=== PATIENT | male | born 1995 | race Caucasian/White ===

== ENCOUNTER 2024-07-30 13:13 | Inpatient (IN) ==
[2024-07-30 13:54] LABS: Basophils # (auto) 0.05 K/uL (0.00-0.20); Basophils % (auto) 0.5 %; Eosinophils # (auto) 0.15 K/uL (0.00-0.50); Eosinophils % (auto) 1.6 %; Hematocrit (blood only) 43.6 % (42.0-52.0); Hemoglobin 14.1 g/dl (14.0-18.0); Immature Granulocytes # (auto) 0.04 K/uL (0.01-0.20); Immature Granulocytes % (auto) 0.4 %; Lymphocytes # (auto) 1.98 K/uL (1.20-3.40); Lymphocytes % (auto) 21.4 %; Mean Corpuscular Hemoglobin 27.4 pg (25.0-34.0); Mean Corpuscular Hgb Conc 32.3 g/dL (32.0-36.0); Mean Corpuscular Volume 84.7 fL (80.0-100.0); Mean Platelet Volume 9.7 fL (9.4-12.4); Monocytes # (auto) 0.54 K/uL (0.11-0.59); Monocytes % (auto) 5.8 %; Neutrophils # (auto) 6.48 K/uL (1.40-6.50); Neutrophils % (auto) 70.3 %; Platelet Count 299 K/uL (130-400); RDW Coefficient of Variation 13.8 % (11.5-14.5); RDW Standard Deviation 42.8 fL (36.4-46.3); Red Blood Count 5.15 M/uL (4.70-6.10); White Blood Count 9.24 K/ul (4.8-10.8)
[2024-07-30 14:18] LABS: Albumin Globulin Ratio 1.5 (0.9-2); Albumin Level 4.5 gm/dl (3.4-5.0); BUN Creatinine Ratio 18.9 (10-20); Bilirubin,Total 0.3 mg/dl (0.2-1.0); Calcium 9.3 mg/dl (8.6-10.3); Creatinine Clr Calc Pharmacy 79.9 ml/min; Potassium 4.3 mmol/L (3.5-5.1); Total Protein 7.5 gm/dl (6.0-8.3)
[2024-07-30] MEDS: SODIUM CHLORIDE 0.9% 1,000 ML IV ONE (15:54)
--- NOTE | 2024-07-30 16:11 | Emergency Department Note ---
Impression & Plan Suicide ideation, Weakness, OCD (obsessive compulsive disorder), Dehydration ED Provider Note NAME: FLORIDA RAYA AGE: 29 SEX: M : 1995 ARRIVES VIA: Walk-In INFORMANT: Patient ED PROVIDER(S): Lazarus Weinstein MD CHIEF COMPLAINT: Weakness, referred. PLAN: Disposition: MEDICAL DECISION MAKING: The patient is a 29-year-old gentleman with a past medical history of anxiety/depression, OCD, substance abuse status post admission to rehab facility for abuse of stimulants who presents to the emergency department via walk-in for evaluation of generalized fatigue and extremity weakness that he reports has been ongoing for the past several days. Patient reports he felt so weak that he could not walk but did manage to walk and drive himself to the emergency department. He reports he contacted his outpatient providers who have been managing his mental health medications and he was referred to the emergency department for assessment. He denies any fevers, chills, cough, congestion, chest pain, shortness of breath. Of note, the patient did arrive to emergency department during time of high volume, acuity and prolonged emergency department waiting times. Critical pathways initiated from triage. On my evaluation the patient is anxious appearing but calm and cooperative. He is afebrile heart in the 110s vital signs otherwise stable. He appears clinically dry. He exhibits no focal neurologic deficits. He has normal strength in all extremities. There is no clonus. He has normal reflexes. EKG without overt acute ischemia. WBC, H/H and platelets within normal limits. Chemistry without metabolic acidosis. Creatinine 1.4, slightly increased from prior values consistent with patient's clinically dry appearance. LFTs unremarkable. Electrolytes unremarkable. CPK is 288, mildly above upper limit of normal and nonspecific. TSH within limits. UA without evidence of infection. Urine drug screen was positive for MDMA which may be related to patient's bupropion and otherwise it was negative. Respiratory BioFire was negative. The patient was treated with IV fluid hydration. Given the patient's reassuring medical evaluation unlikely to have emergent process at this time. However, prior to the patient's reassessment I was alerted by his RN that the patient was insisting to leave. However, devulcanizer charger then was contacted by the patient's brother who lives in [place] but had reported he received concerning text messages from his brother stating suicidal ideation where he reported he was going to go home and overdose on his medications. Appreciate case management assistance/consultation who did receive these text messages for review and given the clear intent that was described 302 petition was created and petition for warrant in process. Patient was given 2 mg oral Ativan as he had become quite restless at this point. Upon completion of mental assessment, the patient was offered option to sign in voluntary under a 201 for inpatient psychiatric treatment. However he continued to plead to being discharged. After repeatedly attempted to explain the importance of pursuing emergent mental health treatment the patient continued to decline voluntary admission. I then met personally with the patient again to review concerns. He did attempt to explain that he had concerns regarding impact of involuntary treatment in terms of his career. He explained that if the option was for inpatient psychiatric treatment he would sign in voluntarily instead rather than under a 302. It was explained to him and his girlfriend at the bedside that this does not communicate true voluntary intent to manage his mental health. We did attempt to assess if a appropriate safety plan would even be possible and unfortunately it was not. The patient's girlfriend is to be traveling for a conference tomorrow. The patient initially reported that he had a scheduled appointment tomorrow as with his [facility] to assess medication changes but he then acknowledged that he did not in fact have a scheduled appointment but hope to obtain one by calling tomorrow. The patient's 302 will be upheld at this time. Bed search will be initiated. Home medications were ordered. The patient was signed out to Dr. Olivera at change of shift. Triage Nursing notes reviewed and agree them. Prior/external medical records reviewed Vital Signs: reviewed Differential diagnosis: Mood disorder, infection, hypoglycemia, electrolyte abnormalities, cardiac sources, intracerebral event, toxicologic, trauma, neurologic, as well as other pathologies. ER treatment provided: See below. Diagnostics interpreted by me: ECG: Normal sinus rhythm, 89 bpm, no ectopy, no overt ST elevation or depression, QTc 423, QRS 90. Cardiac Monitoring: An order for continuous cardiac monitoring was placed and demonstrated Normal sinus rhythm, 89 bpm, no ectopy. Laboratory studies: See below Imaging studies: See below Consultation(s): Case management HPI: Per MDM. ROS: See above HPI for pertinent positives & negatives. A total of 10 systems reviewed and were otherwise negative. VITALS:See Below PHYSICAL EXAMINATION: GENERAL: Awake, alert, anxious appearing but calm, in no distress HENT: Normocephalic, atraumatic. Oropharynx with dry mucous membranes and otherwise unremarkable. EYES: Normal conjunctiva. Sclera non-icteric. EOMI. No nystamgus. PEARRL. NECK: Supple. No nuchal rigidity. FROM. No JVD. RESPIRATORY: Clear to auscultation. CARDIAC: Tachycardic rate, normal rhythm. Extremities warm and well perfused. Pulses equal. ABDOMEN: Soft, non-distended. No tenderness to palpation. No rebound or guarding. No masses. MUSCULOSKELETAL: Chest examination reveals no tenderness. The back is symmetrical on inspection without obvious abnormality. There is no CVA tenderness to palpation. No joint edema. LOWER EXTREMITIES: Calves are equal size bilaterally and non-tender. No edema. No discoloration. NEURO: Cranial nerves II-XII grossly intact. 5/5 strength and SILT x 4 extremities. Cerebellar function intact including [id number], alternating palms, [id number]. DTRs within normal limits. No clonus. SKIN: No rash or jaundice noted. PSYCH: Suicidal statements. Labile affect. Lazarus Weinstein MD Past Med/Surg History Problem List (Updated 07/31/24 @ 01:28 by Lazarus Weinstein MD) Dehydration (Acute) OCD (obsessive compulsive disorder) (Acute) Weakness (Acute) Suicide ideation (Acute) Change in bowel habits Abdominal pain Medical History Anxiety Substance abuse OCD (obsessive compulsive disorder) Weight loss Social History Smoking Status: Never smoker Do You Dip or Chew Tobacco: No; Hx Alcohol Use: Yes Hx Substance Use: No Preferred Language: Somali Feels Safe at Home: Yes Gender Identity: Male Allergies Allergies Allergy/AdvReac Type Severity Reaction Status Date / Time No Known Allergies Allergy Verified 09/19/23 13:53 Home Meds Home Medications Medication Instructions Recorded Confirmed escitalopram oxalate 5 mg tablet 5 mg PO UD 05/22/24 07/30/24 bupropion HCl 150 mg 24 hr tablet, 150 mg PO DAILY 07/30/24 07/30/24 extended release buspirone 5 mg tablet 5 mg PO BID 07/30/24 07/30/24 clonidine HCl 0.2 mg tablet 0.2 mg PO QID 07/30/24 07/30/24 fluvoxamine 50 mg tablet 50 mg PO HS 07/30/24 07/30/24 gabapentin 100 mg capsule 100 mg PO TID PRN sleep/anxiety 07/30/24 07/30/24 Results & Data (ED) Vital Signs Vital Signs - 24 hr 07/30/24 13:18 07/30/24 15:53 07/30/24 16:00 Temperature 36.7 C Temperature Source Temporal Artery Scan Pulse Rate 117 H 66 Pulse Rate [Left Apical] 75 Pulse Rhythm [Left Apical] Pulse Strength [Left Apical] Respiratory Rate 18 18 17 Respiratory Effort / Characteristics Non-Labored Spontaneous Non-Labored Spontaneous Respiratory Depth Normal Normal Respiratory Pattern Regular Regular Blood Pressure 138/85 108/80 Blood Pressure [Right Arm] 132/78 Blood Pressure Mean 102 89 Blood Pressure Mean [Right Arm] 96 Blood Pressure Position [Right Arm] Pulse Oximetry 97 96 96 Oxygen Delivery Method Room Air Room Air Room Air Sepsis Recent Fever Within 48 Hours No Sepsis New/Unexplained Change in Mental Status N/A Sepsis Action Taken by Nursing No Action Required 07/30/24 16:27 07/30/24 16:30 07/30/24 16:33 Temperature Temperature Source Pulse Rate 65 68 Pulse Rate [Left Apical] Pulse Rhythm [Left Apical] Pulse Strength [Left Apical] Respiratory Rate 20 21 Respiratory Effort / Characteristics Respiratory Depth Respiratory Pattern Blood Pressure 126/68 Blood Pressure [Right Arm] Blood Pressure Mean 83 Blood Pressure Mean [Right Arm] Blood Pressure Position [Right Arm] Pulse Oximetry 99 100 Oxygen Delivery Method Room Air Room Air Sepsis Recent Fever Within 48 Hours Sepsis New/Unexplained Change in Mental Status Sepsis Action Taken by Nursing 07/30/24 16:35 07/30/24 17:07 07/30/24 17:12 Temperature Temperature Source Pulse Rate 79 66 Pulse Rate [Left Apical] Pulse Rhythm [Left Apical] Pulse Strength [Left Apical] Respiratory Rate 17 Respiratory Effort / Characteristics Respiratory Depth Respiratory Pattern Blood Pressure 113/67 Blood Pressure [Right Arm] Blood Pressure Mean 78 Blood Pressure Mean [Right Arm] Blood Pressure Position [Right Arm] Pulse Oximetry 98 Oxygen Delivery Method Room Air Sepsis Recent Fever Within 48 Hours Sepsis New/Unexplained Change in Mental Status Sepsis Action Taken by Nursing 07/30/24 17:27 07/30/24 21:05 07/30/24 22:53 Temperature 36.6 C Temperature Source Oral Pulse Rate 61 Pulse Rate [Left Apical] 140 H 94 H Pulse Rhythm [Left Apical] Regular Pulse Strength [Left Apical] Normal Respiratory Rate 22 18 18 Respiratory Effort / Characteristics Non-Labored Spontaneous Respiratory Depth Normal Respiratory Pattern Regular Blood Pressure Blood Pressure [Right Arm] 146/86 H 138/95 Blood Pressure Mean Blood Pressure Mean [Right Arm] 106 109 Blood Pressure Position [Right Arm] Standing Pulse Oximetry 100 97 99 Oxygen Delivery Method Room Air Room Air Sepsis Recent Fever Within 48 Hours Sepsis New/Unexplained Change in Mental Status Sepsis Action Taken by Nursing 07/31/24 00:45 Temperature Temperature Source Pulse Rate Pulse Rate [Left Apical] 120 H Pulse Rhythm [Left Apical] Regular Pulse Strength [Left Apical] Normal Respiratory Rate 20 Respiratory Effort / Characteristics Non-Labored Spontaneous Respiratory Depth Normal Respiratory Pattern Regular Blood Pressure Blood Pressure [Right Arm] 152/63 H Blood Pressure Mean Blood Pressure Mean [Right Arm] 92 Blood Pressure Position [Right Arm] Sitting Pulse Oximetry 98 Oxygen Delivery Method Room Air Sepsis Recent Fever Within 48 Hours Sepsis New/Unexplained Change in Mental Status Sepsis Action Taken by Nursing Laboratory Data Attestation: I reviewed the patient's lab results. 07/30/24 13:30 07/30/24 13:30 Lab Results 07/30/24 07/30/24 07/30/24 Range/Units 13:30 15:45 Unknown WBC 9.24 (4.8-10.8) K/ul RBC 5.15 (4.70-6.10) M/uL Hgb 14.1 (14.0-18.0) g/dl Hct 43.6 (42.0-52.0) % MCV 84.7 (80.0-100.0) fL MCH 27.4 (25.0-34.0) pg MCHC 32.3 (32.0-36.0) g/dL RDW Std Deviation 42.8 (36.4-46.3) fL RDW Coeff of Finn 13.8 (11.5-14.5) % Plt Count 299 (130-400) K/uL MPV 9.7 (9.4-12.4) fL Immature Gran % (Auto) 0.4 % Neut % (Auto) 70.3 % Lymph % (Auto) 21.4 % [place] % (Auto) 5.8 % Eos % (Auto) 1.6 % Baso % (Auto) 0.5 % Neut # (Auto) 6.48 (1.40-6.50) K/uL Lymph # (Auto) 1.98 (1.20-3.40) K/uL [place]imes # (Auto) 0.54 (0.11-0.59) K/uL Eos # (Auto) 0.15 (0.00-0.50) K/uL Baso # (Auto) 0.05 (0.00-0.20) K/uL Immature Gran # (Auto) 0.04 (0.01-0.20) K/uL Sodium 139 (136-145) mmol/L Potassium 4.3 (3.5-5.1) mmol/L Chloride 105 (98-107) mmol/L Carbon Dioxide 28 (21-32) mmol/L Anion Gap 6 (3-11) BUN 28 H (6-23) mg/dl Creatinine 1.48 H (0.6-1.4) mg/dl Est Cr Clr Drug Dosing 79.9 ml/min eGFR 66.09 BUN/Creatinine Ratio 18.9 (10-20) Glucose 94 (70-99(Fasting)) mg/dl Calcium 9.3 (8.6-10.3) mg/dl Phosphorus 3.5 (2.5-4.9) mg/dl Magnesium 2.0 (1.7-2.4) mg/dl Total Bilirubin 0.3 (0.2-1.0) mg/dl AST 26 (13-39) U/L ALT 20 (7-52) U/L Alkaline Phosphatase 75 (34-104) U/L Total Creatine Kinase 288 H (30-223) U/L Total Protein 7.5 (6.0-8.3) gm/dl Albumin 4.5 (3.4-5.0) gm/dl Globulin 3.0 (2.5-4.0) gm/dl Albumin/Globulin Ratio 1.5 (0.9-2) TSH 3.085 (0.300-4.500) uIu/ml Urine Color Yellow Urine Appearance Clear (Clear) Urine pH 5.5 (4.5-7.5) Ur Specific [place] 1.032 H (1.000-1.030) Urine Protein Negative (Negative) Urine Glucose (UA) Negative (Negative) Urine Ketones Negative (Negative) Urine Blood Negative (Negative) Urine Nitrite Negative (Negative) Urine Bilirubin Negative (Negative) Urine Urobilinogen Negative (Negative) Ur Leukocyte Esterase Negative (Negative) Urine Opiates Screen Neg (Neg) Ur Methadone, Qual Neg (Neg) Urine Fentanyl Screen Neg (Neg) Urine Barbiturates Neg (Neg) Ur Phencyclidine (PCP) Neg (Neg) U Amphetamin/Meth Scrn Neg (Neg) MDMA (Ecstasy) Screen Pos H (Neg) U Benzodiazepines Scrn Neg (Neg) Ur Cocaine Metabolite Neg (Neg) U Marijuana (THC) Screen Neg (Neg) Adenovirus (PCR) Not Detected (NotDetected) B. pertussis DNA (PCR) Not Detected (NotDetected) B.parapertussis DNA PCR Not Detected (NotDetected) C. pneumoniae DNA (PCR) Not Detected (NotDetected) Coronavirus OC43 (PCR) Not Detected (NotDetected) Coronavirus HKU1 (PCR) Not Detected (NotDetected) Coronavirus 229E (PCR) Not Detected (NotDetected) SARS-CoV-2 (PCR) Not Detected (NotDetected) Coronavirus NL63 (PCR) Not Detected (NotDetected) Human Metapneumovir PCR Not Detected (NotDetected) Influenza Type A (PCR) Not Detected (NotDetected) Influenza Type B (PCR) Not Detected (NotDetected) M. pneumoniae (PCR) Not Detected (NotDetected) Parainfluenza 1 (PCR) Not Detected (NotDetected) Parainfluenza 2 (PCR) Not Detected (NotDetected) Parainfluenza 3 (PCR) Not Detected (NotDetected) Parainfluenza 4 (PCR) Not Detected (NotDetected) RSV (PCR) Not Detected (NotDetected) Entero/Rhino (PCR) Not Detected (NotDetected) Administered Medications Buspirone HCl (Buspirone 5 Mg Tab) 5 mg PO BID SEB Stop: 08/29/24 20:59 Last Admin: 07/30/24 22:04 Dose: Not Given Documented By: LAF Clonidine HCl (Clonidine Hcl 0.1 Mg Tab) 0.2 mg PO QID SEB Stop: 08/29/24 20:59 Last Admin: 07/30/24 21:59 Dose: 0.2 mg Documented By: YUN Fluvoxamine Maleate (Fluvoxamine Maleate 50 Mg Tab) 50 mg PO HS SEB Stop: 08/29/24 20:59 Last Admin: 07/30/24 22:01 Dose: 50 mg Documented By: YUN Gabapentin (Gabapentin 100 Mg Cap) 100 mg PO TID PRN PRN Reason: sleep/anxiety Stop: 08/29/24 20:46 Last Admin: 07/30/24 22:34 Dose: 100 mg Documented By: YUN Discontinued Medications Sodium Chloride (Nss) 1,000 mls @ 999 mls/hr IV .Q1H1M ONE Stop: 07/30/24 16:50 Last Infusion: 07/30/24 17:15 Dose: Infused Documented By: Admin: 07/30/24 15:54 Dose: 999 mls/hr Documented By: GASPER Lorazepam (Lorazepam 1 Mg Tab) 2 mg SL NOW STA Stop: 07/30/24 18:24 Last Admin: 07/30/24 18:30 Dose: 2 mg Documented By: GASPER Lorazepam (Lorazepam 1 Mg Tab) 1 mg SL NOW STA Stop: 07/30/24 21:56 Last Admin: 07/30/24 21:59 Dose: 1 mg Documented By: YUN Lorazepam (Lorazepam 1 Mg Tab) 2 mg SL NOW STA Stop: 07/30/24 22:54 Last Admin: 07/30/24 23:33 Dose: 2 mg Documented By: CARLITOS Non-Formulary Medication (Clonidine Hcl) 0.2 mg PO QID SEB Stop: 08/29/24 20:59 Last Admin: 07/30/24 22:08 Dose: Not Given Documented By: YUN Discharge Plan Visit Data Chief Complaint: Weakness Stated Complaint: MUSCLE WEAKNESS, EXTREME FATIGUE, MED CHANGED ED Provider: Julio C Olivera Discharge Problem: Suicide ideation, Weakness, OCD (obsessive compulsive disorder), Dehydration Forms Stand Alone Forms: My [facility] [employer] Prescriptions Prescriptions: No Action escitalopram oxalate 5 mg tablet 5 mg PO UD Rx Instructions: 07/30 is the last day taking medication. took this morning buspirone 5 mg tablet 5 mg PO BID clonidine HCl 0.2 mg tablet 0.2 mg PO QID fluvoxamine 50 mg tablet 50 mg PO HS Rx Instructions: starts full tablet today 07/30 gabapentin 100 mg capsule 100 mg PO TID PRN (Reason: sleep/anxiety) bupropion HCl 150 mg tablet extended release 24 hr 150 mg PO DAILY Referrals Referrals: PCP,NO [Physician] - Discharge Problem: OCD (obsessive compulsive disorder) Qualifiers: Obsessive-compulsive disorder type: unspecified Qualified Code(s): F42.9 - Obsessive-compulsive disorder, unspecified
[2024-07-30 16:21] LABS: Appearance Urine Clear (Clear); Bilirubin Urine Negative (Negative); Blood Urine Negative (Negative); Color Urine Yellow; Glucose Urine UA Negative (Negative); Ketones Urine Negative (Negative); Leukocyte Esterase Urine Negative (Negative); Nitrite Urine Negative (Negative); Protein Urine Negative (Negative); Specific Gravity Urine 1.032 (1.000-1.030); Urobilinogen Urine Negative (Negative); pH Urine 5.5 (4.5-7.5)
[2024-07-30 16:21] LABS: Phosphorus 3.5 mg/dl (2.5-4.9)
[2024-07-30 16:37] LABS: Thyroid Stimulating Hormone 3.085 uIu/ml (0.300-4.500)
[2024-07-30 17:14] LABS: Amphetamines+Metham, Urine Neg (Neg); Barbiturates, Urine Neg (Neg); Benzodiazepine, Urine Neg (Neg); Cocaine, Urine Neg (Neg); Fentanyl, Urine Neg (Neg); MDMA (Ecstacy), Urine Pos (Neg); Marijuana, Urine Neg (Neg); Methadone, Urine Neg (Neg); Opiate, Urine Neg (Neg); Phencyclidine, Urine Neg (Neg)
[2024-07-30 17:21] LABS: Adenovirus PCR Not Detected (NotDetected); Bordetella parapertussis PCR Not Detected (NotDetected); Bordetella pertussis PCR Not Detected (NotDetected); Chlamydia pneumoniae PCR Not Detected (NotDetected); Coronavirus 229E PCR Not Detected (NotDetected); Coronavirus CoV-2 (COVID19)PCR Not Detected (NotDetected); Coronavirus HKU1 PCR Not Detected (NotDetected); Coronavirus NL63 PCR Not Detected (NotDetected); Coronavirus OC43PCR Not Detected (NotDetected); Human Metapneumovirus PCR Not Detected (NotDetected); Influenza A PCR Not Detected (NotDetected); Influenza B PCR Not Detected (NotDetected); Mycoplasma pneumoniae PCR Not Detected (NotDetected); Parainfluenza Virus 1 PCR Not Detected (NotDetected); Parainfluenza Virus 2 PCR Not Detected (NotDetected); Parainfluenza Virus 3 PCR Not Detected (NotDetected); Parainfluenza Virus 4 PCR Not Detected (NotDetected); Respiratory Syncytial VirusPCR Not Detected (NotDetected); Rhinovirus/Enterovirus PCR Not Detected (NotDetected)
[2024-07-30] MEDS: LORazepam 1 MG TAB SL STA ×3 (18:30→23:33)
--- NOTE | 2024-07-30 20:45 | Emergency Department Note ---
ED Visit Note Patient is a 29-year-old male who presents to the ER for weakness in the legs. He was seen and evaluated by Dr. Weinstein. He texted his brother that he was going to kill himself by overdosing on his medications while here in the ER. Labs showed no significant leukocytosis or anemia. BMP with LFTs and bilirubin and TSH was unremarkable. UA was clean. Tox was positive for ecstasy. Viral panel was negative. CK faintly elevated. He is medically clear. Upon discharge he became significantly agitated and did send text to his brother there is going to kill himself. Patient was [address] Weinstein. Bed search has ensued. Medications were ordered. Patient is resting comfortably in the ER under my care. Patient was signed out to Dr. Peck at the change in shift. .
[2024-07-30] MEDS: cloNIDine HCL 0.1 MG TAB PO SCH (21:59)
[2024-07-30] MEDS: busPIRone 5 MG TAB PO SCH (22:00)
[2024-07-30] MEDS: fluvoxaMINE MALEATE 50 MG TAB PO SCH (22:01)
[2024-07-30] MEDS: NON-FORMULARY MEDICATION (Clonidine Hcl 0.2 mg tablet) PO SCH (22:08)
[2024-07-30] MEDS: GABAPENTIN 100 MG CAP PO PRN (22:34)
--- NOTE | 2024-07-31 01:41 | Emergency Department Note ---
ED Visit Note Date and Time: 251:30 Interval History: Sign out received from Dr. Olivera who reviewed details of the encounter. Patient was pending bed placement. Summary: patient presented to the emergency department with weakness and made suicidal statements. He was involuntarily committed and is currently awaiting bed placement. patient was given an oral dose of melatonin to help with sleep. Disposition: The patient has been accepted to 3 [address]. .
[2024-07-31] MEDS: MELATONIN 3 MG TAB PO STA (02:13)
[2024-07-31] MEDS ORDERED: hydrOXYzine HCl 25 MG TAB PO PRN (03:55)
[2024-07-31] MEDS ORDERED: SODIUM CHLORIDE 0.65% NA SOLN 45 ML (OCEAN) PRN (03:55)
[2024-07-31] MEDS ORDERED: ALUMINUM/MAGNESIUM SUSP 30 ML UDC PO PRN (03:55)
[2024-07-31] MEDS ORDERED: BISMUTH SUBSALICYLATE 262 MG CHEW PO PRN (03:55)
[2024-07-31] MEDS: hydrOXYzine HCl 25 MG TAB PO PRN (04:09)
[2024-07-31] MEDS: ACETAMINOPHEN 325 MG TAB PO PRN (07:57)
[2024-07-31] MEDS: cloNIDine HCL 0.1 MG TAB PO SCH (08:00)
[2024-07-31] MEDS: busPIRone 5 MG TAB PO SCH (08:00)
[2024-07-31] MEDS: buPROPion XL 150 MG TABCR PO SCH (08:00)
[2024-07-31] MEDS ORDERED: buPROPion XL 150 MG TABCR PO SCH (09:00)
[2024-07-31] MEDS: GABAPENTIN 100 MG CAP PO PRN (10:01)
[2024-07-31] MEDS: LORazepam 1 MG TAB PO STA (12:18)
--- NOTE | 2024-07-31 14:26 | History & Physical ---
Date of Service July 31, 2024 Impression / Recommendations Impression FLORIDA RAYA is a 29-year-old M who currently lives in [facility] with roommate, has a history of OCD, ADHD, and was admitted on 07/31/24 03:23 on a 302 involuntary commitment for suicidal ideation. Presentation consistent with acute stress disorder related to recent passing of his mother due to multiple myeloma. He presents with new onset distressing dreams, flashbacks, and hypervigilance. 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 Concern for h/o longstanding OCD. Possible EMMANUEL, mood disorder. Elevated HR and BP likely due to anxiety response. Labs reviewed: CBC, TSH, UA unremarkable; Cr elevated 1.48; CK 288; UDS+MDMA false positive for Bupropion. Cr and CK levels likely related to dehydration and psychomotor agitation; will follow levels. Patient had multiple medication changes at recent rehab stay. Concern for clonidine induced constipation and was reduced to TID dosing. Hold bupropion due to concerns for worsening anxiety. Plan to optimize fluvoxamine, gabapentin for OCD, anxiety. Buspirone d/c due to ineffectiveness. Medication s/e and adverse effects discussed with patient and agreeable. Patient would benefit from supportive counseling now and PTSD therapies if symptoms cont inue to persist. At this time patient denies SI and is able to contract for safety. Overall, I spent a total of 80 minutes with this case including review of chart records, nursing report, review of lab work, direct evaluation of the patient at bedside, counseling the patient, multidisciplinary team meeting, orders, and documentation in the electronic health record. (1) Acute stress disorder: (2) Depression: (3) OCD (obsessive compulsive disorder): Obsessive-compulsive disorder type: unspecified Qualified Code(s): F42.9 - Obsessive-compulsive disorder, unspecified (4) Amphetamine use disorder, moderate, in sustained remission: (5) Dehydration: (6) Elevated creatine kinase: (7) Elevated serum creatinine: (8) Constipation: Plan 07/31/24: The patient was admitted to the [facility] ([facility] mental health unit) on q15 min checks (behavioral with suicide precautions) for safety. The patient will participate in group, recreational, and milieu therapies and will be offered additional individual and family sessions as clinically appropriate. -Increase gabapentin to 200mg TID -Decrease home clonidine to 0.2mg TID (constipation concern) -D/c home buspirone -Hold home Bupropion (potentially making anxiety worse) -Increase fluvoxamine to 100mg HS -Start Lorazepam 1mg HS + 0.5mg BID PRN -Miralax 17g daily + daily fiber supplement -Labs: BMP, A1c, fasting lipids, CK -Questionnaires: Y-BOCS, EMMANUEL-7, ITQ Inventory Assets Strengths: good self esteem, problem solving Needs: improved insight, supportive counseling Risk Factors Assessment Male: Yes : Yes Do You Have Access To A Gun?: No Health Problems: No Mental Health Diagnoses: Yes Substance Use Disorders: Yes Previous Attempt: No Family History of Suicide: Yes Previous Psychiatric Hospitalization: No Hopelessness: No Protective Factors Assessment Church Beliefs: No : No Responsible for Young Children: No Employed: Yes Stable Relationships: Yes Supportive Family: Yes Good Rapport with Provider: Yes Absence of Any Risk Factors Above: No Psychiatric History Identifying Data FLORIDA RAYA is a 29-year-old M who currently lives in [facility] with roommate, has a history of OCD, ADHD, and was admitted on 07/31/24 03:23 on a 302 involuntary commitment for suicidal ideation. Chief Complaint "Mother 06/30/24" History of Present Illness The patient reports mother had multiple myeloma for the past year. He reports being there when she was spitting out blood. He recently completed a stay at [facility] rehab for 2 mo. He left early because of his mother's . He reports inc anxiety, low energy, recurrent distressing nightmares, insomnia, flashbacks since. Nightmares and flashbacks are related to memories of his mothers . He reports past dx of OCD, ADHD. Reports constantly seeking reassurance, occasional hair pulling, rechecking documents, ruminating on negative memories. Reports initially coming into the ER for "extreme fatigue" and muscle weakness. Reports has been working out regularly recently. Here hoping to get medication adjustment. Initially self presented then was upset with long wait time to be seen, was anxious and had texted brother SI intent and brother called with concerns for his safety. Was then admitted as 302. Currently denies SI. [place] in [place] to [place] immigrant parents. Denies h/o emotional, physical or sexual abuse. Reports communication gap between him and his father. No past psychiatric hospitalization. Past zoloft (distant use), lexapro (20mg upto 2 mo), straterra (80mg, made anxiety worse), wellbutrin 150mg (Recently started), clonidine 0.2mg QID (effective for anxiety), fluvoxamine 50mg (recently started), gabapentin 100mg TID (eff for anxiety). Family psych history: paternal uncle with completed suicide , maternal aunt with alcohol dependence. Father with suspected anxiety. 8 year history of amphetamine salt use that progressed to use disorder to cope with negative emotions and for cognitive performance. Recent rehab stay and sobriety. Denies other drug or alcohol use. 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 Currently on [facility]. [facility] for outpatient psych. [place] for dual diagnosis counseling. Lives with roommate. Has GF. Past Psychiatric History Current Psychiatric Diagnosis: OCD, ADHD,EMMANUEL, Depression Do You Have Access To A Gun?: No History of Previous Suicide Attempt: No Allergies Allergy/AdvReac Type Severity Reaction Status Date / Time No Known Allergies Allergy Verified 09/19/23 13:53 Home Medications Medication Instructions Recorded Confirmed Type escitalopram oxalate 5 mg tablet 5 mg PO UD 05/22/24 07/30/24 History bupropion HCl 150 mg 24 hr tablet, 150 mg PO DAILY 07/30/24 07/30/24 History extended release buspirone 5 mg tablet 5 mg PO BID 07/30/24 07/30/24 History clonidine HCl 0.2 mg tablet 0.2 mg PO QID 07/30/24 07/30/24 History fluvoxamine 50 mg tablet 50 mg PO HS 07/30/24 07/30/24 History gabapentin 100 mg capsule 100 mg PO TID PRN sleep/anxiety 07/30/24 07/30/24 History Family History Family History of: Doesn't Know Alcohol History Hx of Alcohol Use Over the Past 12 Months: No AUDIT Total Score: 0 Smoking Use Have You Smoked or Used Tobacco Products in the Last 30 Days: No Smoking Status: Never smoker Substance History Hx of Prescription Med Misuse Over the Past 12 Months: No Hx of Over the Counter Med Misuse Over the Past 12 Months: No Hx of Inhalent Misuse Over the Past 12 Months: No Hx of Organic Substance Use Over the Past 12 Months: Yes (Marijuana, once every 2 weeks) Hx of Illegal Substances/Street Drug Use Over Past 12 Months: No Problems as a Result of Past Substance Use: None Identified Personal History Living Arrangements: Home Highest Grade Completed: Graduate School 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 Marital Status: Single Number Of Children: 0 Beliefs That Will Affect Care: None Patient History Medical History Anxiety Substance abuse OCD (obsessive compulsive disorder) Weight loss Social History Smoking Status: Never smoker Do You Dip or Chew Tobacco: No; Hx Alcohol Use: Yes Hx Substance Use: No Preferred Language: Cambodian Communication Ability: Effective Trimming 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 Operator Required: No Beliefs That Will Affect Care: None Feels Safe at Home: Yes Gender Identity: Male Assistive Devices: Contacts and Glasses Physical Exam Mental Examination: Appearance: Well Groomed Eye Contact: Maintains Eye Con tact Motor Behavior: Restless Speech: Normal Mood: Anxious Affect: Congruent and Constricted Thought Process: Intact and Linear Thought Content: Intact Hallucinations: None Insight: Poor (to limited) Judgement: Fair Vital Signs (Past 24 Hours): Last Vital Signs Temp 36.9 C 07/31/24 04:15 Pulse 112 H 07/31/24 04:15 Resp 18 07/31/24 04:15 BP 151/88 H 07/31/24 04:15 Pulse Ox 99 07/31/24 04:15 O2 Del Method Room Air 07/31/24 04:15 Exam Statement: A physical exam was performed in the ED for the purposes of medical clearance. I accept that physical as correct and adequate for the purposes of the inpatient physical exam. Results & Data ([facility]) Laboratory Results Laboratory Results - last 24 hr 07/30/24 07/30/24 07/30/24 13:30 15:45 Unknown Phosphorus 3.5 Magnesium 2.0 Total Creatine Kinase 288 H TSH 3.085 Urine Color Yellow Urine Appearance Clear Urine pH 5.5 Ur Specific [place] 1.032 H Urine Protein Negative Urine Glucose (UA) Negative Urine Ketones Negative Urine Blood Negative Urine Nitrite Negative Urine Bilirubin Negative Urine Urobilinogen Negative Ur Leukocyte Esterase Negative Urine Opiates Screen Neg Ur Methadone, Qual Neg Urine Fentanyl Screen Neg Urine Barbiturates Neg Ur Phencyclidine (PCP) Neg U Amphetamin/Meth Scrn Neg Urine MDEA Pending MDMA (Ecstasy) Screen Pos H MDMA Pending Urine MDMA Pending U Benzodiazepines Scrn Neg Ur Cocaine Metabolite Neg U Marijuana (THC) Screen Neg Adenovirus (PCR) Not Detected B. pertussis DNA (PCR) Not Detected B.parapertussis DNA PCR Not Detected C. pneumoniae DNA (PCR) Not Detected Coronavirus OC43 (PCR) Not Detected Coronavirus HKU1 (PCR) Not Detected Coronavirus 229E (PCR) Not Detected SARS-CoV-2 (PCR) Not Detected Coronavirus NL63 (PCR) Not Detected Human Metapneumovir PCR Not Detected Influenza Type A (PCR) Not Detected Influenza Type B (PCR) Not Detected M. pneumoniae (PCR) Not Detected Parainfluenza 1 (PCR) Not Detected Parainfluenza 2 (PCR) Not Detected Parainfluenza 3 (PCR) Not Detected Parainfluenza 4 (PCR) Not Detected RSV (PCR) Not Detected Entero/Rhino (PCR) Not Detected Current Inpatient Medications Current Inpatient Medications: Current Inpatient Medications Acetaminophen (Acetaminophen 325 Mg Tab) 650 mg PO Q4H PRN PRN Reason: Headache or Minor Fever Stop: 08/30/24 03:54 Last Admin: 07/31/24 07:57 Dose: 650 mg Al Hydrox/Mg Hydrox/Simethicone (Aluminum/Magnesium Susp 30 Ml Udc) 30 ml PO Q4H PRN PRN Reason: GI Upset Stop: 08/30/24 03:54 Bismuth Subsalicylate (Bismuth Subsalicylate 262 Mg Chew) 2 tab PO Q30M PRN PRN Reason: Loose Stool/Diarrhea Stop: 08/30/24 03:54 Clonidine HCl (Clonidine Hcl 0.1 Mg Tab) 0.2 mg PO TID SEB Stop: 08/30/24 08:59 Last Admin: 07/31/24 08:00 Dose: 0.2 mg Fluvoxamine Maleate (Fluvoxamine Maleate 50 Mg Tab) 50 mg PO HS SEB Stop: 08/30/24 21:59 Gabapentin (Gabapentin 100 Mg Cap) 200 mg PO TID SEB Stop: 08/30/24 13:59 Hydroxyzine HCl (Hydroxyzine Hcl 25 Mg Tab) 50 mg PO HSZ PRN PRN Reason: Insomnia Stop: 08/30/24 03:54 Hydroxyzine HCl (Hydroxyzine Hcl 25 Mg Tab) 25 mg PO Q4H PRN PRN Reason: Anxiety Stop: 08/30/24 03:54 Last Admin: 07/31/24 10:53 Dose: 25 mg Lorazepam (Lorazepam 1 Mg Tab) 1 mg PO HS ESB Stop: 08/30/24 21:59 Lorazepam (Lorazepam 0.5 Mg Tab) 0.5 mg PO BID PRN PRN Reason: Anxiety Stop: 08/30/24 12:03 Magnesium Hydroxide (Magnesium Hydroxide Susp 30 Ml Udc) 30 ml PO DAILY PRN PRN Reason: Constipation Stop: 08/30/24 03:54 Sodium Chloride (Sodium Chloride 0.65% Na Soln 45 Ml ([place])) 1 - 2 sprays NA PRN PRN PRN Reason: Nasal Dryness/Congestion Stop: 08/30/24 03:54
[2024-07-31] MEDS: MAGNESIUM HYDROXIDE SUSP 30 ML UDC PO PRN (14:28)
[2024-07-31] MEDS: GABAPENTIN 100 MG CAP PO SCH (14:29)
[2024-07-31] MEDS: PSYLLIUM or GUAR GUM FIBER 4GM PACKET PO SCH (15:04)
[2024-07-31] MEDS: POLYETHYLENE (MIRALAX) 17 GM PACK PO SCH (15:04)
[2024-07-31] MEDS: LORazepam 0.5 MG TAB PO PRN (15:45)
[2024-07-31] MEDS: fluvoxaMINE MALEATE 50 MG TAB PO SCH (20:29)
[2024-07-31] MEDS: LORazepam 1 MG TAB PO SCH (21:05)
[2024-07-31] MEDS ORDERED: fluvoxaMINE MALEATE 50 MG TAB PO SCH (22:00)
[2024-08-01 08:29] LABS: BUN Creatinine Ratio 15.3 (10-20); Calcium 9.7 mg/dl (8.6-10.3); Chol HDL Ratio 3.9 (0-5); Creatinine Clr Calc Pharmacy 90.2 ml/min; Potassium 4.6 mmol/L (3.5-5.1)
[2024-08-01 08:38] LABS: Estimated Average Glucose 108 mg/dl; Hemoglobin A1C 5.4 % (4.5-5.6)
--- NOTE | 2024-08-01 10:39 | Psychiatric Progress Note ---
Date of Service August 01, 2024 Impression / Recommendations Impression FLORIDA RAYA is a 29-year-old M who currently lives in [facility] with roommate, has a history of OCD, ADHD, and was admitted on 07/31/24 03:23 on a 302 involuntary commitment for suicidal ideation. Presentation consistent with acute stress disorder related to recent passing of his mother due to multiple myeloma. He presents with new onset distressing dreams, flashbacks, and hypervigilance. 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 Concern for h/o longstanding OCD. Possible EMMANUEL, mood disorder. Elevated HR and BP likely due to anxiety response. Labs reviewed: CBC, TSH, UA unremarkable; Cr elevated 1.48; CK 288; UDS+MDMA false positive for Bupropion. Cr and CK levels likely related to dehydration and psychomotor agitation; will follow levels. Patient had multiple medication changes at recent rehab stay. Concern for clonidine induced constipation and was reduced to TID dosing. Hold bupropion due to concerns for worsening anxiety. Plan to optimize fluvoxamine, gabapentin for OCD, anxiety. Buspirone d/c due to ineffectiveness. Medication s/e and adverse effects discussed with patient and agreeable. Patient would benefit from supportive counseling now and PTSD therapies if symptoms cont inue to persist. At this time patient denies SI and is able to contract for safety. Overall, I spent a total of 80 minutes with this case including review of chart records, nursing report, review of lab work, direct evaluation of the patient at bedside, counseling the patient, multidisciplinary team meeting, orders, and documentation in the electronic health record. (1) Acute stress disorder: (2) Depression: (3) OCD (obsessive compulsive disorder): (4) Amphetamine use disorder, moderate, in sustained remission: (5) Dehydration: (6) Elevated creatine kinase: (7) Elevated serum creatinine: (8) Anxiety: Plan 07/31/24: The patient was admitted to the [facility] ([facility] inpatient mental health unit) on q15 min checks (behavioral with suicide precautions) for safety. The patient will participate in group, recreational, and milieu therapies and will be offered additional individual and family sessions as clinically appropriate. -Increase gabapentin to 200mg TID -Decrease home clonidine to 0.2mg TID (constipation concern) -D/c home buspirone -Hold home Bupropion (potentially making anxiety worse) -Increase fluvoxamine to 100mg HS -Start Lorazepam 1mg HS + 0.5mg BID PRN -Miralax 17g daily + daily fiber supplement -Labs: BMP, A1c, fasting lipids, CK -Questionnaires: Y-BOCS, EMMANUEL-7, ITQ Inventory Assets Strengths: good self esteem, problem solving Needs: improved insight, supportive counseling Risk Factors Assessment Male: Yes : Yes Do You Have Access To A Gun?: No Health Problems: No Mental Health Diagnoses: Yes Substance Use Disorders: Yes Previous Attempt: No Family History of Suicide: Yes Previous Psychiatric Hospitalization: No Hopelessness: No Protective Factors Assessment Amish Beliefs: No : No Responsible for Young Children: No Employed: Yes Stable Relationships: Yes Supportive Family: Yes Good Rapport with Provider: Yes Absence of Any Risk Factors Above: No Interval History Identifying Information 29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 Admission diagnosis included acute stress disorder. Chief Complaint "I am having trouble with anxiety". Review of Systems Sleep Information Total Hours of Sleep: 7.75 Sleep Comments: Did not sleep restless, anxious, given medication for anxiety. Meal Information Percent Meal Consumed - Breakfast: 100 Percent Meal Consumed - Lunch: 100 Percent Meal Consumed - Dinner: 100 Subjective Subjective Patient was seen & assessed and interval progress reviewed with treatment team. Physical Exam Mental Examination Appearance: Well Groomed Eye Contact: Maintains Eye Contact Motor Behavior: Restless Speech: Normal Mood: Anxious Affect: Congruent and Constricted Thought Process: Intact and Linear Thought Content: Intact Hallucinations: None Insight: Poor (to limited) Judgement: Fair Psychiatric A+Ox3, euthymic affect Orientation: alert, oriented x 3 and cooperative Apperance: appropriately dressed, appropriately groomed and appeared stated age Eye Contact: good eye contact Motor Behavior: steady gait and station Speech: normal rate/rhythm/volume of speech Affect: mood congruent with affect Mood: + anxious mood and + dysphoric mood Thought Process: goal directed thought process, linear/logical thought process and clear/coherent thought process Thought Content: + preoccupation Suicidal Thoughts: denies suicidal thoughts, denies suicidal plan and denies suicidal intent Homicidal Thoughts: denies homicidal thoughts, denies homicidal plan and denies homicidal intent Cognition: recent memory grossly intact, remote memory grossly intact, attention grossly intact and language grossly intact Estimated Intelligence: + above average estimated intelligence Insight: + fair insight Judgment: + fair judgement Vital Signs (Past 24 Hours) Last Vital Signs Temp 36.9 C 07/31/24 04:15 Pulse 105 H 07/31/24 20:20 Resp 18 07/31/24 04:15 BP 100/71 08/01/24 06:37 Pulse Ox 99 07/31/24 04:15 O2 Del Method Room Air 07/31/24 04:15 Results & Data ([facility]) Laboratory Results Laboratory Results - last 24 hr 08/01/24 06:35 Sodium 142 Potassium 4.6 Chloride 106 Carbon Dioxide 33 H Anion Gap 3 BUN 20 Creatinine 1.31 Est Cr Clr Drug Dosing 90.2 eGFR 76.51 BUN/Creatinine Ratio 15.3 Glucose 92 Estimat Average Glucose 108 Hemoglobin A1c 5.4 Calcium 9.7 Total Creatine Kinase 643 H Triglycerides 116 Cholesterol 166 LDL Cholesterol, Calc 100 VLDL Cholesterol, Calc 23 HDL Cholesterol 43 Cholesterol/HDL Ratio 3.9 Current Inpatient Medications Current Inpatient Medications: Current Inpatient Medications Acetaminophen (Acetaminophen 325 Mg Tab) 650 mg PO Q4H PRN PRN Reason: Headache or Minor Fever Stop: 08/30/24 03:54 Last Admin: 08/01/24 06:48 Dose: 650 mg Al Hydrox/Mg Hydrox/Simethicone (Aluminum/Magnesium Susp 30 Ml Udc) 30 ml PO Q4H PRN PRN Reason: GI Upset Stop: 08/30/24 03:54 Bismuth Subsalicylate (Bismuth Subsalicylate 262 Mg Chew) 2 tab PO Q30M PRN PRN Reason: Loose Stool/Diarrhea Stop: 08/30/24 03:54 Clonidine HCl (Clonidine Hcl 0.1 Mg Tab) 0.2 mg PO TID SEB Stop: 08/30/24 08:59 Last Admin: 08/01/24 07:36 Dose: 0.2 mg Fluvoxamine Maleate (Fluvoxamine Maleate 50 Mg Tab) 100 mg PO HS [facility] Stop: 08/30/24 21:59 Last Admin: 07/31/24 20:29 Dose: 100 mg Gabapentin (Gabapentin 100 Mg Cap) 200 mg PO TID SEB Stop: 08/30/24 13:59 Last Admin: 08/01/24 07:36 Dose: 200 mg Hydroxyzine HCl (Hydroxyzine Hcl 25 Mg Tab) 50 mg PO HSZ PRN PRN Reason: Insomnia Stop: 08/30/24 03:54 Hydroxyzine HCl (Hydroxyzine Hcl 25 Mg Tab) 25 mg PO Q4H PRN PRN Reason: Anxiety Stop: 08/30/24 03:54 Last Admin: 07/31/24 10:53 Dose: 25 mg Lorazepam (Lorazepam 1 Mg Tab) 1 mg PO HS SEB Stop: 08/30/24 21:59 Last Admin: 07/31/24 21:05 Dose: 1 mg Lorazepam (Lorazepam 0.5 Mg Tab) 0.5 mg PO BID PRN PRN Reason: Anxiety Stop: 08/30/24 12:03 Last Admin: 08/01/24 09:04 Dose: 0.5 mg Magnesium Hydroxide (Magnesium Hydroxide Susp 30 Ml Udc) 30 ml PO DAILY PRN PRN Reason: Constipation Stop: 08/30/24 03:54 Last Admin: 07/31/24 14:28 Dose: 30 ml Polyethylene Glycol (Polyethylene (Miralax) 17 Gm Pack) 17 gm PO DAILY SEB Stop: 08/30/24 14:44 Last Admin: 08/01/24 07:37 Dose: 17 gm Psyllium Hydrophilic Mucilloid (Psyllium Or Guar Gum Fiber 4gm Packet) 4 gm PO QAM SEB Stop: 08/30/24 14:44 Last Admin: 08/01/24 07:37 Dose: 4 gm Sodium Chloride (Sodium Chloride 0.65% Na Soln 45 Ml ([place])) 1 - 2 sprays NA PRN PRN PRN Reason: Nasal Dryness/Congestion Stop: 08/30/24 03:54 Mental Health & Subst Abuse Tx Psychiatrist Name of Psychiatrist: Francine Nicole Psychiatrist's Date Of Appointment With Psychiatric Provider: 08/10 Time of Appointment with Psychiatrist: 10 am Psychiatric Appointment Comment: No apppointment scheduled at this time. Therapist Name of Therapist: [address] [place], [place] [address]Kike Mejia Therapist's ext [phone] Date of Therapist Appointment: 08/09/24 Time of Therapist Appointment: 2 pm Therapy Appointment Comment: [address] [place] [address] Telehealth Director Name of Telehealth Director: NA (3) OCD (obsessive compulsive disorder) Obsessive-compulsive disorder type: unspecified Qualified Code(s): F42.9 - Obsessive-compulsive disorder, unspecified
--- NOTE | 2024-08-01 10:42 | Psychiatric Progress Note ---
Date of Service August 01, 2024 Impression / Recommendations Impression FLOR[place] RAYA is a 29-year-old M who currently lives in [facility] with roommate, has a history of OCD, ADHD, and was admitted on 07/31/24 03:23 on a 302 involuntary commitment for suicidal ideation. Per Dr Almaraz note 07/31/24, "presentation consistent with acute stress disorder related to recent passing of his mother due to multiple myeloma. He presents with new onset distressing dreams, flashbacks, and hypervigilance. 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 Concern for h/o longstanding OCD. Possible EMMANUEL, mood disorder. Elevated HR and BP likely due to anxiety response. Labs reviewed: CBC, TSH, UA unremarkable; Cr elevated 1.48; CK 288; UDS+MDMA false positive for Bupropion. Cr and CK levels likely related to dehydration and psychomotor agitation; will follow levels. Patient had multiple medication changes at recent rehab stay. Concern for clonidine induced constipation and was reduced to TID dosing. Hold bupropion due to concerns for worsening anxiety. Plan to optimize fluvoxamine, gabapentin for OCD, anxiety. Buspirone d/c due to ineffectiveness. Medication s/e and adverse effects discussed with patient and agreeable. Patient would benefit from supportive counseling now and PTSD therapies if symptoms continue to persist. At this time patient denies SI and is able to contract for safety". Although he continues to report acute stress symptoms, pt currently reports and evidences improved mood, reduced anxiety, is future oriented and plans to reengage with his outpatient treatment team. He is stable for discharge and can continue his medications as outpatient. Overall, I spent a total of 45 minutes with this case including review of chart records, nursing report, review of lab work, direct evaluation of the patient at bedside, counseling the patient, multidisciplinary team meeting, orders, and documentation in the electronic health record. (1) Acute stress disorder: (2) OCD (obsessive compulsive disorder): (3) Amphetamine use disorder, moderate, in sustained remission: (4) OCD (obsessive compulsive disorder): (5) Anxiety: Plan Pt requested discharge today as he feels much more stable. He denied suicidal ideation intent or plan. No evidence of psychosis. Pt was discharged on current medication with no further adjustments made. He is scheduled to follow up with his outpatient psychiatrist on 08/02/24. Medication ordered for 30 days with no refills. Inventory Assets Strengths: good self esteem, problem solving Needs: improved insight, supportive counseling Suicide Risk Level Suicide Risk Level: Low (q15 min observation checks) Risk Factors Assessment Male: Yes : Yes Do You Have Access To A Gun?: No Health Problems: No Mental Health Diagnoses: Yes Substance Use Disorders: Yes Previous Attempt: No Family History of Suicide: Yes Previous Psychiatric Hospitalization: No Hopelessness: No Protective Factors Assessment Baptism Beliefs: No : No Responsible for Young Children: No Employed: Yes Stable Relationships: Yes Supportive Family: Yes Good Rapport with Provider: Yes Absence of Any Risk Factors Above: No Interval History Identifying Information 29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 Admission diagnosis included acute stress disorder. Chief Complaint "I'd like to be discharged". Review of Systems Sleep Information Total Hours of Sleep: 7.75 Sleep Comments: Did not sleep restless, anxious, given medication for anxiety. Meal Information Percent Meal Consumed - Breakfast: 100 Percent Meal Consumed - Lunch: 100 Percent Meal Consumed - Dinner: 100 Subjective Subjective Patient was seen & assessed and interval progress reviewed with treatment team. This justowriter operator reviewed admission records and verified clinical information with the patient. At this time, he denied any suicidal ideation and reports that he had made suicide threats because he was frustrated by not being able to reach his psychiatrist, with whom he has had a long history. He continues to report anxiety, attention problems and symptoms of an acute stress reaction to his mother's , including insomnia and frequent nightmares. No side effects from current medication. This justowriter operator discussed resuming Wellbutrin; pt was ambivalent about this medication. However, no mood or psychotic symptoms reported or evident during the interview. He denied prior suicide ideation, intent, plan or acts in furtherance of suicide. Denied access to a firearm. He is future oriented and wants a letter to his employer. He exhibited med seeking behavior, at one point bargaining that he would stay longer if it meant he would be discharged on lorazepam. When advised this was unlikely, he requested discharge. He plans to attend his outpatient psychiatric visit tomorrow. Notably, reported chronic pain from a skin condition (raised plaques notable on his anterior upper thorax) for which he had received both topical treatment and injections in the past. Physical Exam Psychiatric A+Ox3, euthymic affect Orientation: alert, oriented x 3 and cooperative Apperance: appropriately dressed, appropriately groomed and appeared stated age Eye Contact: good eye contact Motor Behavior: steady gait and station Speech: normal rate/rhythm/volume of speech Affect: mood congruent with affect Mood: + anxious mood and + dysphoric mood Thought Process: goal directed thought process, linear/logical thought process and clear/coherent thought process Thought Content: + preoccupation Preoccupied with thoughts of mother's recent . Suicidal Thoughts: denies suicidal thoughts, denies suicidal plan and denies suicidal intent Homicidal Thoughts: denies homicidal thoughts, denies homicidal plan and denies homicidal intent Cognition: recent memory grossly intact, remote memory grossly intact, attention grossly intact and language grossly intact Estimated Intelligence: + above average estimated intelligence Insight: + fair insight Judgment: + fair judgement Vital Signs (Past 24 Hours) Last Vital Signs Temp 36.9 C 07/31/24 04:15 Pulse 105 H 07/31/24 20:20 Resp 18 07/31/24 04:15 BP 100/71 08/01/24 06:37 Pulse Ox 99 07/31/24 04:15 O2 Del Method Room Air 07/31/24 04:15 Results & Data ([facility]) Laboratory Results Laboratory Results - last 24 hr 08/01/24 06:35 Sodium 142 Potassium 4.6 Chloride 106 Carbon Dioxide 33 H Anion Gap 3 BUN 20 Creatinine 1.31 Est Cr Clr Drug Dosing 90.2 eGFR 76.51 BUN/Creatinine Ratio 15.3 Glucose 92 Estimat Average Glucose 108 Hemoglobin A1c 5.4 Calcium 9.7 Total Creatine Kinase 643 H Triglycerides 116 Cholesterol 166 LDL Cholesterol, Calc 100 VLDL Cholesterol, Calc 23 HDL Cholesterol 43 Cholesterol/HDL Ratio 3.9 Current Inpatient Medications Current Inpatient Medications: Current Inpatient Medications Acetaminophen (Acetaminophen 325 Mg Tab) 650 mg PO Q4H PRN PRN Reason: Headache or Minor Fever Stop: 08/30/24 03:54 Last Admin: 08/01/24 06:48 Dose: 650 mg Al Hydrox/Mg Hydrox/Simethicone (Aluminum/Magnesium Susp 30 Ml Udc) 30 ml PO Q4H PRN PRN Reason: GI Upset Stop: 08/30/24 03:54 Bismuth Subsalicylate (Bismuth Subsalicylate 262 Mg Chew) 2 tab PO Q30M PRN PRN Reason: Loose Stool/Diarrhea Stop: 08/30/24 03:54 Clonidine HCl (Clonidine Hcl 0.1 Mg Tab) 0.2 mg PO TID SEB Stop: 08/30/24 08:59 Last Admin: 08/01/24 07:36 Dose: 0.2 mg Fluvoxamine Maleate (Fluvoxamine Maleate 50 Mg Tab) 100 mg PO HS SEB Stop: 08/30/24 21:59 Last Admin: 07/31/24 20:29 Dose: 100 mg Gabapentin (Gabapentin 100 Mg Cap) 200 mg PO TID SEB Stop: 08/30/24 13:59 Last Admin: 08/01/24 07:36 Dose: 200 mg Hydroxyzine HCl (Hydroxyzine Hcl 25 Mg Tab) 50 mg PO HSZ PRN PRN Reason: Insomnia Stop: 08/30/24 03:54 Hydroxyzine HCl (Hydroxyzine Hcl 25 Mg Tab) 25 mg PO Q4H PRN PRN Reason: Anxiety Stop: 08/30/24 03:54 Last Admin: 07/31/24 10:53 Dose: 25 mg Lorazepam (Lorazepam 1 Mg Tab) 1 mg PO HS SEB Stop: 08/30/24 21:59 Last Admin: 07/31/24 21:05 Dose: 1 mg Lorazepam (Lorazepam 0.5 Mg Tab) 0.5 mg PO BID PRN PRN Reason: Anxiety Stop: 08/30/24 12:03 Last Admin: 08/01/24 09:04 Dose: 0.5 mg Magnesium Hydroxide (Magnesium Hydroxide Susp 30 Ml Udc) 30 ml PO DAILY PRN PRN Reason: Constipation Stop: 08/30/24 03:54 Last Admin: 07/31/24 14:28 Dose: 30 ml Polyethylene Glycol (Polyethylene (Miralax) 17 Gm Pack) 17 gm PO DAILY SEB Stop: 08/30/24 14:44 Last Admin: 08/01/24 07:37 Dose: 17 gm Psyllium Hydrophilic Mucilloid (Psyllium Or Guar Gum Fiber 4gm Packet) 4 gm PO QAM SEB Stop: 08/30/24 14:44 Last Admin: 08/01/24 07:37 Dose: 4 gm Sodium Chloride (Sodium Chloride 0.65% Na Soln 45 Ml ([place])) 1 - 2 sprays NA PRN PRN PRN Reason: Nasal Dryness/Congestion Stop: 08/30/24 03:54 Mental Health & Subst Abuse Tx Psychiatrist Name of Psychiatrist: Francine Nicole Psychiatrist's Date Of Appointment With Psychiatric Provider: 08/10 Time of Appointment with Psychiatrist: 10 am Psychiatric Appointment Comment: No apppointment scheduled at this time. [facility] Date of Therapist Appointment: 08/09/24 Time of Therapist Appointment: 2 pm Therapy Appointment Comment: [address] [place] [address] Manager Professional Development Name of Manager Professional Development: ALCIRA (2) OCD (obsessive compulsive disorder) Obsessive-compulsive disorder type: unspecified Qualified Code(s): F42.9 - Obsessive-compulsive disorder, unspecified
--- NOTE | 2024-08-02 09:03 | Electrocardiogram Report ---
Test Reason : Blood Pressure : */* mmHG Vent. Rate : 89 BPM Atrial Rate : 89 BPM P-R Int : 124 ms QRS Dur : 90 ms QT Int : 348 ms P-R-T Axes : 64 64 60 degrees QTcB Int : 423 ms Normal sinus rhythm Normal ECG When compared with ECG of 22-May-2024 20:13, No significant change was found Confirmed by Don Gasca ([id number]) on 08/02/2024 9:03:11 AM Referred By: Confirmed By: Don Gasca
[2024-08-03 13:42] LABS: MDA negative; MDEA negative; MDMA (Ecstasy) Urine, Confirm negative
--- NOTE | 2024-08-05 12:02 | Discharge Summary ---
Date of Service August 05, 2024 History of Present Illness The patient reports mother had multiple myeloma for the past year. He reports being there when she was spitting out blood. He recently completed a stay at [facility] rehab for 2 mo. He left early because of his mother's . He reports inc anxiety, low energy, recurrent distressing nightmares, insomnia, flashbacks since. Nightmares and flashbacks are related to memories of his mothers . He reports past dx of OCD, ADHD. Reports constantly seeking reassurance, occasional hair pulling, rechecking documents, ruminating on negative memories. Reports initially coming into the ER for "extreme fatigue" and muscle weakness. Reports has been working out regularly recently. Here hoping to get medication adjustment. Initially self presented then was upset with long wait time to be seen, was anxious and had texted brother SI intent and brother called with concerns for his safety. Was then admitted as 302. Currently denies SI. Grew up in [facility] [place] [facility] to [place] immigrant parents. Denies h/o emotional, physical or sexual abuse. Reports communication gap between him and his father. No past psychiatric hospitalization. Past zoloft (distant use), lexapro (20mg upto 2 mo), straterra (80mg, made anxiety worse), wellbutrin 150mg (Recently started), clonidine 0.2mg QID (effective for anxiety), fluvoxamine 50mg (recently started), gabapentin 100mg TID (eff for anxiety). Family psych history: paternal uncle with completed suicide , maternal aunt with alcohol dependence. Father with suspected anxiety. 8 year history of amphetamine salt use that progressed to use disorder to cope with negative emotions and for cognitive performance. Recent rehab stay and sobriety. Denies other drug or alcohol use. 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 Currently on [facility]. [employer] for outpatient psych. [facility] for dual diagnosis counseling. Lives with roommate. Has GF. Physical Exam Psychiatric A+Ox3, euthymic affect Orientation: alert, oriented x 3 and cooperative Apperance: appropriately dressed, appropriately groomed and appeared stated age Eye Contact: good eye contact Motor Behavior: steady gait and station Speech: normal rate/rhythm/volume of speech Affect: mood congruent with affect Mood: + anxious mood and + dysphoric mood Thought Process: goal directed thought process, linear/logical thought process and clear/coherent thought process Thought Content: + preoccupation Suicidal Thoughts: denies suicidal thoughts, denies suicidal plan and denies suicidal intent Homicidal Thoughts: denies homicidal thoughts, denies homicidal plan and denies homicidal intent Cognition: recent memory grossly intact, remote memory grossly intact, attention grossly intact and language grossly intact Estimated Intelligence: + above average estimated intelligence Insight: + fair insight Judgment: + fair judgement Vital Signs (Past 24 Hours) Last Vital Signs Temp 36.9 C 08/01/24 13:01 Pulse 120 H 08/01/24 13:01 Resp 18 08/01/24 13:01 BP 127/73 08/01/24 13:01 Pulse Ox 99 08/01/24 13:01 O2 Del Method Room Air 07/31/24 04:15 Principal Diagnosis Post Traumatic Stress Disorder Stimulant Use Disorder in early full remission. Psychiatric Data See daily stay summary. In short, safety was maintained and the patient was cooperative with care. Medication changes included [] and they tolerated this well. A family session was [held] and safety plan was completed prior to discharge. Day of Discharge Assessment Today the patient voices readiness for discharge. They note improvement in mood and deny thoughts to harm self or others. Thoughts remain organized and they are improved from admission. There is no evidence of psychosis. They agree to take mediations as prescribed and keep follow-up appointments. They are stable for discharge to outpatient level of care. 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 Risk Factors Assessment Male: Yes : Yes Do You Have Access To A Gun?: No Health Problems: No Mental Health Diagnoses: Yes Substance Use Disorders: Yes Previous Attempt: No Family History of Suicide: Yes Previous Psychiatric Hospitalization: No Hopelessness: No Protective Factors Assessment Moravian Beliefs: No : No Responsible for Young Children: No Employed: Yes Stable Relationships: Yes Supportive Family: Yes Good Rapport with Provider: Yes Absence of Any Risk Factors Above: No Tobacco Cessation at Discharge Tobacco Cessation Medication Prescribed at Discharge: Not Applicable/Non-Smoker Discharge Data Lab Results 07/30/24 07/30/2425 13:30 15:45 Unknown WBC 9.24 RBC 5.15 Hgb 14.1 Hct 43.6 MCV 84.7 MCH 27.4 MCHC 32.3 RDW Std Deviation 42.8 RDW Coeff of Finn 13.8 Plt Count 299 MPV 9.7 Immature Gran % (Auto) 0.4 Neut % (Auto) 70.3 Lymph % (Auto) 21.4 [place] % (Auto) 5.8 Eos % (Auto) 1.6 Baso % (Auto) 0.5 Neut # (Auto) 6.48 Lymph # (Auto) 1.98 [place] # (Auto) 0.54 Eos # (Auto) 0.15 Baso # (Auto) 0.05 Immature Gran # (Auto) 0.04 Sodium 139 Potassium 4.3 Chloride 105 Carbon Dioxide 28 Anion Gap 6 BUN 28 H Creatinine 1.48 H Est Cr Clr Drug Dosing 79.9 eGFR 66.09 BUN/Creatinine Ratio 18.9 Glucose 94 Estimat Average Glucose Hemoglobin A1c Calcium 9.3 Phosphorus 3.5 Magnesium 2.0 Total Bilirubin 0.3 AST 26 ALT 20 Alkaline Phosphatase 75 Total Creatine Kinase 288 H Total Protein 7.5 Albumin 4.5 Globulin 3.0 Albumin/Globulin Ratio 1.5 Triglycerides Cholesterol LDL Cholesterol, Calc VLDL Cholesterol, Calc HDL Cholesterol Cholesterol/HDL Ratio TSH 3.085 Urine Color Yellow Urine Appearance Clear Urine pH 5.5 Ur Specific [place] 1.032 H Urine Protein Negative Urine Glucose (UA) Negative Urine Ketones Negative Urine Blood Negative Urine Nitrite Negative Urine Bilirubin Negative Urine Urobilinogen Negative Ur Leukocyte Esterase Negative Urine Opiates Screen Neg Ur Methadone, Qual Neg Urine Fentanyl Screen Neg Urine Barbiturates Neg Ur Phencyclidine (PCP) Neg U Amphetamin/Meth Scrn Neg Urine MDEA negative MDMA (Ecstasy) Screen Pos H MDMA negative Urine MDMA negative U Benzodiazepines Scrn Neg Ur Cocaine Metabolite Neg U Marijuana (THC) Screen Neg Adenovirus (PCR) Not Detected B. pertussis DNA (PCR) Not Detected B.parapertussis DNA PCR Not Detected C. pneumoniae DNA (PCR) Not Detected Coronavirus OC43 (PCR) Not Detected Coronavirus HKU1 (PCR) Not Detected Coronavirus 229E (PCR) Not Detected SARS-CoV-2 (PCR) Not Detected Coronavirus NL63 (PCR) Not Detected Human Metapneumovir PCR Not Detected Influenza Type A (PCR) Not Detected Influenza Type B (PCR) Not Detected M. pneumoniae (PCR) Not Detected Parainfluenza 1 (PCR) Not Detected Parainfluenza 2 (PCR) Not Detected Parainfluenza 3 (PCR) Not Detected Parainfluenza 4 (PCR) Not Detected RSV (PCR) Not Detected Entero/Rhino (PCR) Not Detected 08/01/24 06:35 WBC RBC Hgb Hct MCV MCH MCHC RDW Std Deviation RDW Coeff of Finn Plt Count MPV Immature Gran % (Auto) Neut % (Auto) Lymph % (Auto) [place] % (Auto) Eos % (Auto) Baso % (Auto) Neut # (Auto) Lymph # (Auto) [place] # (Auto) Eos # (Auto) Baso # (Auto) Immature Gran # (Auto) Sodium 142 Potassium 4.6 Chloride 106 Carbon Dioxide 33 H Anion Gap 3 BUN 20 Creatinine 1.31 Est Cr Clr Drug Dosing 90.2 eGFR 76.51 BUN/Creatinine Ratio 15.3 Glucose 92 Estimat Average Glucose 108 Hemoglobin A1c 5.4 Calcium 9.7 Phosphorus Magnesium Total Bilirubin AST ALT Alkaline Phosphatase Total Creatine Kinase 643 H Total Protein Albumin Globulin Albumin/Globulin Ratio Triglycerides 116 Cholesterol 166 LDL Cholesterol, Calc 100 VLDL Cholesterol, Calc 23 HDL Cholesterol 43 Cholesterol/HDL Ratio 3.9 TSH Urine Color Urine Appearance Urine pH Ur Specific [place] Urine Protein Urine Glucose (UA) Urine Ketones Urine Blood Urine Nitrite Urine Bilirubin Urine Urobilinogen Ur Leukocyte Esterase Urine Opiates Screen Ur Methadone, Qual Urine Fentanyl Screen Urine Barbiturates Ur Phencyclidine (PCP) U Amphetamin/Meth Scrn Urine MDEA MDMA (Ecstasy) Screen MDMA Urine MDMA U Benzodiazepines Scrn Ur Cocaine Metabolite U Marijuana (THC) Screen Adenovirus (PCR) B. pertussis DNA (PCR) B.parapertussis DNA PCR C. pneumoniae DNA (PCR) Coronavirus OC43 (PCR) Coronavirus HKU1 (PCR) Coronavirus 229E (PCR) SARS-CoV-2 (PCR) Coronavirus NL63 (PCR) Human Metapneumovir PCR Influenza Type A (PCR) Influenza Type B (PCR) M. pneumoniae (PCR) Parainfluenza 1 (PCR) Parainfluenza 2 (PCR) Parainfluenza 3 (PCR) Parainfluenza 4 (PCR) RSV (PCR) Entero/Rhino (PCR) Hospital Course (1) Acute stress disorder: (2) Depression: (3) OCD (obsessive compulsive disorder): (4) Amphetamine use disorder, moderate, in sustained remission: (5) Dehydration: (6) Elevated creatine kinase: (7) Elevated serum creatinine: (8) Constipation: (9) Anxiety: Plan 08/01/24: Discharged home with plan to follow up with community mental health resources. Educated on Crisis services. Continue Clonidine, Gabapentin and Fluvoxamine at current doses. 07/31/24: The patient was admitted to the [facility] ([facility] unit) on q15 min checks (behavioral with suicide precautions) for safety. The patient will participate in group, recreational, and milieu therapies and will be offered additional individual and family sessions as clinically appropriate. -Increase gabapentin to 200mg TID -Decrease home clonidine to 0.2mg TID (constipation concern) -D/c home buspirone -Hold home Bupropion (potentially making anxiety worse) -Increase fluvoxamine to 100mg HS -Start Lorazepam 1mg HS + 0.5mg BID PRN -Miralax 17g daily + daily fiber supplement -Labs: BMP, A1c, fasting lipids, CK -Questionnaires: Y-BOCS, EMMANUEL-7, ITQ Mental Health & Subst Abuse Tx Psychiatrist Name of Psychiatrist: Francine Nicole Psychiatrist's Date Of Appointment With Psychiatric Provider: 08/02 Time of Appointment with Psychiatrist: 12pm Psychiatric Appointment Comment: No apppointment scheduled at this time. Psychiatrist Release of Information: Obtained, Reviewed and Signed Therapist Name of Therapist: [address] [place], [place] [address]Kike Mejia Therapist's ext 16 Date of Therapist Appointment: 08/09/24 Time of Therapist Appointment: 2 pm Therapy Appointment Comment: [address] [place] [address] Therapist Release of Information: Obtained, Reviewed and Signed Tunnel Elastic Operator Lockstitch Name of Tunnel Elastic Operator Lockstitch: ALCIRA Post Discharge Appointments Home Health Services Home Health Services:: None Smoking Cessation Counseling Tobacco Cessation Medication Prescribed at Discharge: Not Applicable/Non-Smoker Contact Information Discharge Discharge Address: [facility] [address], [place] [address] Discharge Plan Discharge Items Patient Disposition: Home - Self-Care Reason For Visit: UNSPECIFIED DEPRESSIVE DISORDER Discharge Diagnosis: OCD, ADHD, Acute Stress Reaction, Amphetamine Use disorder in early full remission. Condition on Discharge: Fair Health Concerns: Chronic (painful) skin rash. Activity: Resume your previous activity Lifting: Gradually increase as tolerated Bathing: No limitations Sexual Activity: When tolerated Exercise/Sports: As tolerated Driving/Machine Use: No limitations Non-emergency contact: Primary Care Provider, Psychiatrist and Therapist Call non-emergency contact if: you have any medication questions and your symptoms worsen Follow-up/Referrals: [facility] [Primary Care Provider] - Diet: Regular Diet Comment: Ensure dietary fiber to reduce constipation. Addtl Attending Provider Instructions: Continue current medications. Pending Studies at Discharge: No Stand-Alone Forms: [facility], Smoking Cessation Medications and DC Order Prescriptions: New clonidine HCl 0.1 mg Tablet 0.2 mg PO TID 30 Days Qty: 180 0RF fluvoxamine 50 mg Tablet 100 mg PO HS 30 Days Qty: 60 0RF gabapentin 100 mg Capsule 200 mg PO TID 30 Days Qty: 180 0RF Discontinued escitalopram oxalate 5 mg tablet 5 mg PO UD Rx Instructions: 07/30 is the last day taking medication. took this morning buspirone 5 mg tablet 5 mg PO BID clonidine HCl 0.2 mg tablet 0.2 mg PO QID fluvoxamine 50 mg tablet 50 mg PO HS Rx Instructions: starts full tablet today 07/30 gabapentin 100 mg capsule 100 mg PO TID PRN (Reason: sleep/anxiety) bupropion HCl 150 mg tablet extended release 24 hr 150 mg PO DAILY Discharge Orders: Discharge Order (Routine); Ordered 08/01/24 Ordered By: Princess King Admission Data Admit Date/Time: 07/31/24 03:23 Attending Provider: Graham Almaraz Admit Provider: Graham Almaraz Primary Care Provider: [facility] Other Providers: Lazarus Weinstein; Julio C Olivera; Princess King Other Interventions: Discharge Summary Assessment (RN) Last Done: 08/01/24 13:01 PSY Interdisciplinary Discharge Planning Last Done: 08/01/24 13:01 C[place] [address] D/C day mgmt > 30 min Patient Type Established History Problem Focused Exam Problem Focused Medical Decision Making Moderate Complexity Diagnoses Acute stress disorder F43.0 Depression F32.A OCD (obsessive compulsive disorder) F42.9 Obsessive-compulsive disorder type: unspecified Amphetamine use disorder, moderate, in sustained remission F15.21 Dehydration E86.0 Elevated creatine kinase R74.8 Elevated serum creatinine R79.89 Constipation K59.00 Anxiety F41.9 Time Spent (min) 35
== END 2024-08-01 13:25 | disposition home or self-care (01) | DRG 880 ==
LOC: ED 13:13 → 3S 07-31 03:23